=== PATIENT | female | born 1995 | race Caucasian/White ===

== ENCOUNTER 2023-11-28 08:49 | Emergency (ER) | payer OTHER, SELFPAY ==
[2023-11-28 09:15] VITALS: BP 125/85
--- NOTE | 2023-11-28 09:55 | ED.GENMED ---
History of Present Illness
<Olivia Cervantes PA-C - Last Filed: 11/28/23 12:54>
General
Chief Complaint: Abdominal Pain
Source: patient
Exam Limitations: none
Time Seen by Provider: 11/28/23 09:30
Nursing documentation reviewed up to this point in time: agreed with
Travel History
Have you had any contact with someone who has COVID-19?: No
Do you have any symptoms of coronavirus? Fever > 100 degrees, chills, cough, shortness of breath, sore throat, loss of taste or smell, muscle aches, or headache?: No
History of Present Illness
History of Present Illness:
Patient is a 28 y.o female presenting for evaluation following bought of vomiting and diarrhea starting this morning. Patient woke from sleep around 5AM and and has multiple bouts of vomiting and diarrhea. She has since started to feel better and
has not vomited or had diarrhea in the past hour. Patient has a history of similar episodes of cyclical vomiting in the past but states that this does not feel nearly as severe as the past. She endorses feeling 'bubble' in LUQ but denies any true
abdominal pain.
She denies any fever, chills, chest pain, shortness of breath, urinary symptoms. She denies any hematemesis, hematochezia, or melena. No known sick contacts.
She has been following with GI for chronic diarrhea and IBS symptoms.
Patient unsure of LMP - irregular due to depo shots.
Patient was seen in ED approx 4 months ago with similar symptoms and negative CT scan.
Past History
<Olivia Cervantes PA-C - Last Filed: 11/28/23 12:54>
Past History
ED Past Medical History: Asthma, GERD, Psychiatric (Anxiety, depression) and Other (Intermittent vomiting episodes, Pneumothorax, IBS, Ovarian cyst, Dysmenorrhea)
ED Past Surgical History: None and Other (Breast reduction)
Patient has exhibited threatening behavior?: No
PSI?: No
Social History
Tobacco: Non-smoker
Alcohol: None
Drug: Marijuana
Personal: Single
Living: with family
Employment: Student
Phy Exam
<Olivia Cervantes PA-C - Last Filed: 11/28/23 12:54>
Physical Exam
Physical Exam:
General: Well appearing and non-toxic
Vitals: VSS, afebrile
HEENT: Atraumatic, normocephalic; pupils equal round and reactive to light bilaterally; protecting airway
Neck: appears supple
CV: RRR, heart sounds normal, no evidence of cyanosis
Resp: No evidence of respiratory distress, lungs clear, no accessory muscle use
Abd: Soft, mild diffuse tenderness without rebound or guarding, non-distended; no CVA tenderness
Extremities: No deformities, no evidence of cyanosis or edema
Neuro: alert and oriented to person, place, time; speech normal, no focal neurologic deficits
Psych: Normal affect
Skin: Intact, no rashes
Course
<Olivia Cervantes PA-C - Last Filed: 11/28/23 12:54>
Orders/Labs/Results
Orders:
Orders
11/28/23 10:09
Test Result ONCE
11/28/23 10:15
Complete Blood Count/With Diff Urgent
Comprehensive Metabolic Panel Urgent
HCG, Serum Qualitative Screen Urgent
Lipase Urgent
11/28/23 10:19
0.9% Sodium Chloride 1000 ml [Nss] 1,000 ml IV BOLUS
Ondansetron Injectable [Zofran] 4 mg IV NOW STA
Abnormal Lab Results
11/28/23
10:15
WBC 12.4 H 10^3/uL
(4.8-10.8)
Abs Immat Gran (auto) 0.1 H 10^3/uL
(0-0.05)
Absolute Neuts (auto) 10.5 H 10^3/uL
(1.4-6.5)
Immature Gran % 0.7 H %
(0-0.5)
Neutrophils % 84.7 H %
(42.2-75.2)
Lymphocytes % 10.3 L %
(20.5-51.1)
Chloride 111 H mmol/L
(98-107)
Carbon Dioxide 20 L mmol/L
(22-30)
Glucose 113 H mg/dl
(70-99)
11/28/23 10:15
11/28/23 10:15
Vital Signs
Initial and Last Documented VS:
Initial Vital Signs
Temp Pulse Resp BP Pulse Ox
98 F 106 18 125/85 98
11/28/23 09:15 11/28/23 09:15 11/28/23 09:15 11/28/23 09:15 11/28/23 09:15
Last Documented Vital Signs
Temp Pulse Resp BP Pulse Ox
98 F 80 16 96/63 100
11/28/23 09:15 11/28/23 10:07 11/28/23 10:07 11/28/23 11:02 11/28/23 11:30
Mateuszlt;Tereso Gutierrez, DO - Last Filed: 11/28/23 11:21>
Orders/Labs/Results
Orders:
Orders
11/28/23 10:09
Test Result ONCE
11/28/23 10:15
Complete Blood Count/With Diff Urgent
Comprehensive Metabolic Panel Urgent
HCG, Serum Qualitative Screen Urgent
Lipase Urgent
11/28/23 10:19
0.9% Sodium Chloride 1000 ml [Nss] 1,000 ml IV BOLUS
Ondansetron Injectable [Zofran] 4 mg IV NOW STA
Abnormal Lab Results
11/28/23
10:15
WBC 12.4 H 10^3/uL
(4.8-10.8)
Abs Immat Gran (auto) 0.1 H 10^3/uL
(0-0.05)
Absolute Neuts (auto) 10.5 H 10^3/uL
(1.4-6.5)
Immature Gran % 0.7 H %
(0-0.5)
Neutrophils % 84.7 H %
(42.2-75.2)
Lymphocytes % 10.3 L %
(20.5-51.1)
Chloride 111 H mmol/L
(98-107)
Carbon Dioxide 20 L mmol/L
(22-30)
Glucose 113 H mg/dl
(70-99)
11/28/23 10:15
11/28/23 10:15
Vital Signs
Initial and Last Documented VS:
Initial Vital Signs
Temp Pulse Resp BP Pulse Ox
98 F 106 18 125/85 98
11/28/23 09:15 11/28/23 09:15 11/28/23 09:15 11/28/23 09:15 11/28/23 09:15
Last Documented Vital Signs
Temp Pulse Resp BP Pulse Ox
98 F 80 16 96/63 100
11/28/23 09:15 11/28/23 10:07 11/28/23 10:07 11/28/23 11:02 11/28/23 11:30
<Olivia Cervantes PA-C - Last Filed: 11/28/23 12:54>
MDM/Problems Addressed
Differential Diagnosis Includes:
gastroenteritis, colitis, pancreatitis, diverticulitis, cholecystitis, appendicitis
MDM/Problems Addressed:
Patient is 28 y.o female presenting for evaluation of multiple bouts of vomiting and diarrhea this morning. No fever, chills, severe abdominal pain, or urinary symptoms. No chest pain or shortness of breath. Patient feeling better since arrival to
ED. VSS, afebrile. Abdomen soft and nontender. No CVA tenderness. Patient has history of similar symptoms with negative imaging approximately 4 months ago. Given patient feeling better and benign abdominal exam - will not get imaging at this time.
Will get basic labs, lipase, . Will give fluids and 4mg zofran. Will reassess
CBC with mild leukocytosis of 12.4. Suspect this is likely reactive from vomiting. Otherwise no clinically significant abnormalities. CMP without any clinically significant abnormalities. Lipase normal. test negative.
Update 10:55: Patient feeling better after zofran. Will continue to let fluids run and reassess.
Patient feeling better. She has remained stable without any recurrent episodes of nausea or vomiting since arrival to ED. Stable for discharge with return precautions and GI follow-up as needed. Patient comfortable with this plan. All questions
answered.
Chronic conditions affecting care:
IBS
Acute Exacerbation and/or Progression of Chronic Illness:
Vomiting, diarrhea
<Olivia Cervantes PA-C - Last Filed: 11/28/23 12:54>
*Pulse Oximetry
Patient hypoxic: no
*Straight Knife Cutter Machine Interpretation
Rate: Straight Knife Cutter Machine- N/A
*Critical Care Note
Total Time (30-74mins, 75-104mins- exclusive of procedures): Not Applicable
ED Attending Note
<Olivia Cervantes PA-C - Last Filed: 11/28/23 12:54>
-
Portions of this chart may have been created with voice recognition software.� Occasional wrong word or��sound alike� substitutions may have occurred due to the inherent limitations of voice recognition software.
<Tereso Gutierrez DO - Last Filed: 11/28/23 11:21>
ED Attending Note
Patient seen and examined by attending physician: Yes
I performed the substantive portion of visit, reviewed & personally made and approve the management plan that is documented in note by myself or JESSICA.: Yes
ED Attending Note:
28-year-old female with a history of cyclical vomiting as well as daily diarrheal illness who presents because she was worried she was going into the throes of her cyclical vomiting. She tried Zofran at home without relief. On my evaluation she
feels much better. Patient denies any abdominal pain. She does follow-up with GI and has a planned appointment upcoming. No fevers. No melena. No hematochezia. Abdomen nondistended, no respiratory distress, no active vomiting. Assessment and
plan: IV fluids given, patient feels much better. Outpatient GI follow-up recommended. Imaging not indicated
Discharge Plan
Departure
Patient Disposition: Home (Routine Discharge)
Date of Disposition: 11/28/23
Time of Disposition: :
Patient with high blood pressure during this ER visit?: No
Condition: Good
Covid-19: Not Applicable
Discharge Problem:
Vomiting, Diarrhea
Instructions: Diarrhea in adolescents and adults, Nausea and Vomiting, Adult (DC)
Prescriptions:
No Action
lamotrigine 25 mg tablet
100 mg PO DAILY
famotidine 20 mg tablet
20 mg PO HS
hydroxyzine HCl 25 mg tablet
25 mg PO TID PRN (Reason: nausea/sleep/dermatitis)
medroxyprogesterone 150 mg/mL syringe
150 mg IM .Q3MOS
bupropion HCl 150 mg tablet extended release 24 hr
150 mg PO DAILY
tamsulosin [Flomax] 0.4 mg capsule
0.4 mg PO DAILY Qty: 7 0RF
diclofenac sodium 75 mg tablet,delayed release (DR/EC)
75 mg PO BID Qty: 10 0RF
Referrals:
Erika Carr PA-C [Family Provider] - As needed
Activity Restrictions/Additional Instructions:
-Return to the emergency department with any high fevers, chest pain, shortness of breath, severe abdominal pain, intractable vomiting, signs of severe dehydration, worsening of current symptoms, or any other concerns
-It is important to stay well-hydrated
-Follow-up with primary care for further evaluation/treatment.
-Follow-up with GI for further evaluation/treatment of persistent GI symptoms.
Interventions
Interventions:
*Risk Screen - Suicide Last Done: 11/28/23 09:15
*General Assessment Last Done: 11/28/23 09:15
*Neglect/Abuse Screening Last Done: 11/28/23 09:15
ED- Fall Risk Assessment Last Done: 11/28/23 10:07
*ED COVID-19 Vaccine History Last Done: 11/28/23 10:07
*Nursing Disposition Last Done: 11/28/23 11:55
NR-Jdtmlr-Ezeuybksht Assessment Last Done: 11/28/23 10:07
Discharge Date and Time
Discharge Date/Time: 11/28/23 12:21
[2023-11-28 10:06] VITALS: BMI 28.0
[2023-11-28 10:07] VITALS: BP 105/68
[2023-11-28 10:27] LABS: % Basophils 0.5 % (0-2); % Eosinophils 0.2 % (0-6); % Immature Granulocytes 0.7 % (0-0.5); % Lymphocytes 10.3 % (20.5-51.1); % Monocytes 3.6 % (1.7-9.3); % Neutrophils 84.7 % (42.2-75.2); Absolute Basophils 0.1 10^3/uL (0-0.2); Absolute Immature Granulocytes 0.1 10^3/uL (0-0.05); Absolute Lymphocytes 1.3 10^3/uL (1.2-3.4); Absolute Monocytes 0.5 10^3/uL (0.1-0.6); Absolute Neutrophils 10.5 10^3/uL (1.4-6.5); Hematocrit 37.5 % (37.0-47.0); Hemoglobin 12.9 g/dL (12.0-16.0); Mean Corp Hgb Conc. 34.4 g/dL (33.0-37.0); Mean Corpuscular Hgb 29.9 pg (27.0-31.0); Nucleated Red Blood Cells % 0 %; Platelet Count 398 10^3/uL (130-400); Red Blood Cell Count 4.31 10^6/uL (4.20-5.40); White Blood Cell Count 12.4 10^3/uL (4.8-10.8)
[2023-11-28] MEDS: NSS 1000 IV (10:36)
[2023-11-28] MEDS: ZOFRAN 4 MG IV (10:37)
[2023-11-28 10:38] LABS: HCG, Serum Qualitative Screen Negative
[2023-11-28 10:43] LABS: ALT (SGPT) 19 U/L (0-35); AST (SGOT) 22 U/L (14-36); Albumin 4.6 g/dl (3.5-5.0); Alkaline Phosphatase 63 U/L (38-126); Blood Urea Nitrogen 8 mg/dl (7-17); Calcium 9.9 mg/dl (8.4-10.2); Carbon Dioxide 20 mmol/L (22-30); Chloride 111 mmol/L (98-107); Estimated Creatinine Clearance > 125 ml/min; Glucose 113 mg/dl (70-99); Lipase 56 U/L (23-300); Potassium 4.2 mmol/L (3.5-5.1); Sodium 139 mmol/L (135-145); Total Bilirubin 0.5 mg/dl (0.2-1.3); Total Protein 7.4 g/dl (6.3-8.2); eGFR > 60.00
[2023-11-28 11:02] VITALS: BP 96/63
== END 2023-11-28 12:21 | disposition home or self-care (01) ==
LOC: EMR 08:49
PROVIDERS: Physician Assistant; EMERGENCY PHYSICIAN Emergency Medicine; FAMILY PHYSICIAN Physician Assistant Medical
DX: R11.2 Nausea with vomiting, unspecified (principal); R19.7 Diarrhea, unspecified
CPT/HCPCS: 99284; 96374; 96361; 80053; 83690; 84703; 85025

== ENCOUNTER 2024-03-24 18:44 | Emergency (ER) | payer OTHER, SELFPAY ==
[2024-03-24] MEDS: TORADOL 15 MG IV (20:20)
[2024-03-24] MEDS: ZOFRAN 4 MG IV (20:20)
[2024-03-24] MEDS: NSS 1000 IV (20:20)
[2024-03-24] MEDS: DILAUDID 1 MG IV (21:23)
[2024-03-24] MEDS: COMPAZINE 10 MG IV (21:23)
[2024-03-24 21:29] VITALS: BP 119/79
[2024-03-24 21:36] LABS: % Basophils 0.3 % (0-2); % Lymphocytes 9.8 % (20.5-51.1); % Monocytes 5.5 % (1.7-9.3); % Neutrophils 83.4 % (42.2-75.2); Absolute Basophils 0.1 10^3/uL (0-0.2); Absolute Immature Granulocytes 0.2 10^3/uL (0-0.05); Absolute Monocytes 1.1 10^3/uL (0.1-0.6); Absolute Neutrophils 16.7 10^3/uL (1.4-6.5); Hemoglobin 12.9 g/dL (12.0-16.0); Mean Corp Hgb Conc. 35.8 g/dL (33.0-37.0); Mean Corpuscular Hgb 29.2 pg (27.0-31.0); Mean Corpuscular Volume 81.4 fL (81.0-99.0); Mean Platelet Volume 9.1 fL (7.4-10.4); Nucleated Red Blood Cells % 0 %; Platelet Count 474 10^3/uL (130-400); Red Blood Cell Count 4.42 10^6/uL (4.20-5.40); Red Cell Dist. Width 13.2 % (11.5-14.5)
--- NOTE | 2024-03-24 21:46 | ED.GENMED ---
History of Present Illness
General
Chief Complaint: Abdominal Symptoms
Source: patient
Exam Limitations: none
Time Seen by Provider: 03/24/24 20:18
Nursing documentation reviewed up to this point in time: agreed with
Travel History
Have you had any contact with someone who has COVID-19?: No
Do you have any symptoms of coronavirus? Fever > 100 degrees, chills, cough, shortness of breath, sore throat, loss of taste or smell, muscle aches, or headache?: No
History of Present Illness
History of Present Illness:
The patient is a 28-year-old female with a past medical history of chronic nausea and vomiting who comes in with complaints of severe nausea, vomiting and upper abdominal pain that started this morning. Patient attributes it to eating ice cream
last night. The patient does admit to smoking marijuana on a nightly basis. She does report that she took a 2-year break from marijuana but still had episodes of nausea, vomiting and abdominal pain. Patient reports she has had normal bowel
movements. She denies fever.
Past History
Past History
ED Past Medical History: Asthma, GERD, Psychiatric (Anxiety, depression) and Other (Intermittent vomiting episodes, Pneumothorax, IBS, Ovarian cyst, Dysmenorrhea, endometriosis)
ED Past Surgical History: Other (Breast reduction, surgery for scarring from endometriosis)
Patient has exhibited threatening behavior?: No
PSI?: No
Social History
Tobacco: Non-smoker
Alcohol: None
Drug: Marijuana
Personal: Single
Living: with family
Employment: Student
Family History
Family History: Other
Review of Systems
Review of Systems
Allergies reviewed?: Yes
All Other Systems: ROS reviewed and negative except as documented in HPI and ROS
Constitutional: Reports no symptoms
EENT: Reports no symptoms
Respiratory: Reports no symptoms
Cardiac: Reports chest pain
ABD/GI: Reports abdominal pain, nausea and vomiting
: Reports no symptoms
Musculoskeletal: Reports no symptoms
Skin: Reports no symptoms
Neurological: Reports no symptoms
Endocrine: Reports no symptoms
Hematologic/Lymphatic: Reports no symptoms
Psychiatric: Reports anxiety
Phy Exam
Physical Exam
Physical Exam:
Physical Exam
General: Patient extremely anxious. Retching, actively vomiting. Patient is hyperventilating
Neck: supple. no meningeal signs. normal psoterior pharynx
Heart: Regular rate, no murmur
Lungs: no acute respiratory distress. clear bilaterally
Abdomen: Difficult to hear bowel sounds due to patient retching. Abdomen is soft throughout and nondistended. Mild epigastric and left upper quadrant tenderness without rebound or guarding.
Neuro: alert and oriented. no focal neurological deficits
Skin: no rash
Psychiatric: well kept. interactive and cooperative
Extremities: no edema.
Course
Orders/Labs/Results
Orders:
Orders
03/24/24 20:18
Ketorolac [Toradol] 15 mg IV NOW STA
Ondansetron Injectable [Zofran] 4 mg IV NOW STA
03/24/24 20:19
Ketorolac [Toradol] 15 mg .ROUTE .STK-MED ONE
Ondansetron Injectable [Zofran] 4 mg .ROUTE .STK-MED ONE
03/24/24 20:20
0.9% Sodium Chloride 1000 ml [Nss] 1,000 ml IV BOLUS
03/24/24 21:09
HYDROmorphone [Dilaudid] 1 mg IV NOW STA
Prochlorperazine [Compazine] 10 mg IV NOW STA
03/24/24 21:10
Test Result ONCE
Abdominal Series [CR Obstruct Series W/pa Chest] Urgent
Comment:
Reason For Exam: upper ab pain, vomiting, CP
03/24/24 21:24
Complete Blood Count/With Diff Urgent
Comprehensive Metabolic Panel Urgent
HCG, Serum Qualitative Screen Urgent
Lipase Urgent
Abnormal Lab Results
03/24/24
21:24
WBC 20.0 H 10^3/uL
(4.8-10.8)
Hct 36.0 L %
(37.0-47.0)
Plt Count 474 H 10^3/uL
(130-400)
Abs Immat Gran (auto) 0.2 H 10^3/uL
(0-0.05)
Absolute Neuts (auto) 16.7 H 10^3/uL
(1.4-6.5)
Absolute Monos (auto) 1.1 H 10^3/uL
(0.1-0.6)
Immature Gran % 1.0 H %
(0-0.5)
Neutrophils % 83.4 H %
(42.2-75.2)
Lymphocytes % 9.8 L %
(20.5-51.1)
Carbon Dioxide 18 L mmol/L
(22-30)
Glucose 133 H mg/dl
(70-99)
Calcium 10.6 H mg/dl
(8.4-10.2)
Albumin 5.1 H g/dl
(3.5-5.0)
03/24/24 21:24
03/24/24 21:24
Vital Signs
Initial and Last Documented VS:
Initial Vital Signs
Temp Pulse Resp Pulse Ox
98.1 F 86 28 96
03/24/24 18:48 03/24/24 18:48 03/24/24 18:48 03/24/24 18:48
Last Documented Vital Signs
Temp Pulse Resp BP Pulse Ox
98.1 F 84 18 119/79 96
03/24/24 18:48 03/24/24 21:29 03/24/24 21:29 03/24/24 21:29 03/24/24 21:29
MDM/Problems Addressed
Differential Diagnosis Includes:
hyperemesis cannabinoid syndrome, small bowel obstruction, acute cholecystitis
MDM/Problems Addressed:
Patient presents with acute on chronic abdominal pain and vomiting
Chronic conditions affecting care:
Gastritis, GERD
Acute Exacerbation and/or Progression of Chronic Illness:
Patient may have acute exacerbation of her chronic nausea and vomiting possibly due to cannabis use
*Radiology
Radiology exam reviewed: preliminary read by ED provider (Obstruction series reviewed by me. No acute disease seen)
*Pulse Oximetry
Patient hypoxic: no
*Supervisor Compressed Yeast Interpretation
Rate: normal
Interpretation: normal
Rhythm: sinus
*Critical Care Note
Total Time (30-74mins, 75-104mins- exclusive of procedures): Not Applicable
Data Reviewed
Review of Other/Old Records Reveals: Radiology Studies (CT abdomen pelvis reviewed from October 2023 which shows evidence of kidney stone)
Source: patient
Patient Management
Social determinants of health affecting care: Living situation and Strong social support
Update Note
Update Note:
10:30 PM patient reports she feels so much better. She reports her abdominal pain is completely gone. I reexamined her abdomen and it is soft and nontender throughout. So it is doubtful there is an acute surgical or inflammatory issue.
ED Attending Note
-
Portions of this chart may have been created with voice recognition software.� Occasional wrong word or��sound alike� substitutions may have occurred due to the inherent limitations of voice recognition software.
Discharge Plan
Departure
Patient Disposition: Home (Routine Discharge)
Date of Disposition: 03/24/24
Time of Disposition: 22:46
Patient with high blood pressure during this ER visit?: No
Condition: Good
Covid-19: Not Applicable
Discharge Problem:
Acute vomiting, Acute upper abdominal pain
Instructions: Nausea and Vomiting, Adult (DC), Abdominal Pain
Prescriptions:
No Action
lamotrigine 25 mg tablet
100 mg PO DAILY
famotidine 20 mg tablet
20 mg PO HS
hydroxyzine HCl 25 mg tablet
25 mg PO TID PRN (Reason: nausea/sleep/dermatitis)
medroxyprogesterone 150 mg/mL syringe
150 mg IM .Q3MOS
bupropion HCl 150 mg tablet extended release 24 hr
150 mg PO DAILY
tamsulosin [Flomax] 0.4 mg capsule
0.4 mg PO DAILY Qty: 7 0RF
diclofenac sodium 75 mg tablet,delayed release (DR/EC)
75 mg PO BID Qty: 10 0RF
Referrals:
Erika Carr PA-C [Family Provider] -
Activity Restrictions/Additional Instructions:
Return for fever or severe abdominal pain. Please try to keep yourself well-hydrated.
Interventions
Interventions:
*Risk Screen - Suicide Last Done: 03/24/24 18:48
*General Assessment Last Done: 03/24/24 18:56
*Neglect/Abuse Screening Last Done: 03/24/24 18:48
ED- Fall Risk Assessment Last Done: 03/24/24 18:56
*ED COVID-19 Vaccine History Last Done: 03/24/24 18:56
BD-Voxypt-Jzskrgprjd Assessment Last Done: 03/24/24 18:56
Discharge Date and Time
Print Language: YI
[2024-03-24 21:51] LABS: HCG, Serum Qualitative Screen Negative
[2024-03-24 21:56] LABS: AST (SGOT) 30 U/L (14-36); Albumin 5.1 g/dl (3.5-5.0); Alkaline Phosphatase 77 U/L (38-126); Blood Urea Nitrogen 9 mg/dl (7-17); Calcium 10.6 mg/dl (8.4-10.2); Carbon Dioxide 18 mmol/L (22-30); Chloride 107 mmol/L (98-107); Glucose 133 mg/dl (70-99); Lipase 90 U/L (23-300); Potassium 4.1 mmol/L (3.5-5.1); Sodium 142 mmol/L (135-145); Total Bilirubin 0.8 mg/dl (0.2-1.3); Total Protein 7.9 g/dl (6.3-8.2); eGFR > 60.00
[2024-03-24 22:08] LABS: ALT (SGPT) < 30 U/L (0-35)
[2024-03-24 22:55] VITALS: BP 123/74
== END 2024-03-24 22:59 | disposition home or self-care (01) ==
LOC: EMR 18:44
PROVIDERS: EMERGENCY PHYSICIAN Emergency Medicine; FAMILY PHYSICIAN Physician Assistant Medical
DX: R11.2 Nausea with vomiting, unspecified (principal); R10.30 Lower abdominal pain, unspecified; J45.909 Unspecified asthma, uncomplicated; K21.9 Gastro-esophageal reflux disease without esophagitis; F41.8 Other specified anxiety disorders; K58.9 Irritable bowel syndrome, unspecified
CPT/HCPCS: 99283; 96374; 96375; 96361; 74022; 80053; 83690; 84703; 85025

== ENCOUNTER 2024-06-19 11:59 | Emergency (ER) | payer OTHER, SELFPAY ==
[2024-06-19 12:01] VITALS: BP 123/88
[2024-06-19 12:38] LABS: % Basophils 0.5 % (0-2); % Eosinophils 0.3 % (0-6); % Immature Granulocytes 0.9 % (0-0.5); % Lymphocytes 9.9 % (20.5-51.1); % Monocytes 3.4 % (1.7-9.3); Absolute Basophils 0.1 10^3/uL (0-0.2); Absolute Immature Granulocytes 0.1 10^3/uL (0-0.05); Absolute Lymphocytes 1.3 10^3/uL (1.2-3.4); Absolute Monocytes 0.4 10^3/uL (0.1-0.6); Hematocrit 39.8 % (37.0-47.0); Hemoglobin 13.8 g/dL (12.0-16.0); Mean Corp Hgb Conc. 34.7 g/dL (33.0-37.0); Mean Corpuscular Hgb 29.2 pg (27.0-31.0); Mean Corpuscular Volume 84.1 fL (81.0-99.0); Mean Platelet Volume 8.9 fL (7.4-10.4); Nucleated Red Blood Cells % 0 %; Platelet Count 374 10^3/uL (130-400); Red Blood Cell Count 4.73 10^6/uL (4.20-5.40); Red Cell Dist. Width 12.9 % (11.5-14.5); White Blood Cell Count 12.9 10^3/uL (4.8-10.8)
[2024-06-19 12:51] LABS: ALT (SGPT) 16 U/L (0-35); AST (SGOT) 21 U/L (14-36); Albumin 5.1 g/dl (3.5-5.0); Alkaline Phosphatase 65 U/L (38-126); Blood Urea Nitrogen 11 mg/dl (7-17); Calcium 10.5 mg/dl (8.4-10.2); Carbon Dioxide 21 mmol/L (22-30); Chloride 107 mmol/L (98-107); Glucose 119 mg/dl (70-99); Lipase 53 U/L (23-300); Potassium 4.4 mmol/L (3.5-5.1); Sodium 142 mmol/L (135-145); Total Bilirubin 0.5 mg/dl (0.2-1.3); Total Protein 7.5 g/dl (6.3-8.2); eGFR > 60.00
--- NOTE | 2024-06-19 13:02 | ED.GENMED ---
History of Present Illness
<Olivia Cervantes PA-C - Last Filed: 06/19/24 19:20>
General
Chief Complaint: Abdominal Pain
Source: patient
Exam Limitations: none
Time Seen by Provider: 06/19/24 12:42
Nursing documentation reviewed up to this point in time: agreed with
History of Present Illness
History of Present Illness:
Patient is a 29 year old female presenting with severe abdominal pain associated with nausea, vomiting, diarrhea with acute onset this morning. Patient states around 730 this morning she began with persistent nausea and vomiting. She describes
pain across her upper abdomen. Also has had a few episodes of diarrhea this morning. Patient denies any fever, chills, or urinary symptoms
Patient states that she has had multiple similar episodes in the past. Was thought that it might be cannabis induced hyperemesis although patient reports a few bouts of discontinuing marijuana smoking without improvement in symptoms. She did
recently have a colonoscopy and endoscopy by GI few months ago which were apparently normal.
Patient does report nightly marijuana smoking.
Past History
<Olivia Cervantes PA-C - Last Filed: 06/19/24 19:20>
Past History
ED Past Medical History: Asthma, GERD, Psychiatric (Anxiety, depression) and Other (Intermittent vomiting episodes, Pneumothorax, IBS, Ovarian cyst, Dysmenorrhea, endometriosis)
ED Past Surgical History: Other (Breast reduction, surgery for scarring from endometriosis)
Patient has exhibited threatening behavior?: No
PSI?: No
Social History
Tobacco: Non-smoker
Alcohol: None
Drug: Marijuana
Personal: Single
Living: with family
Employment: Student
Family History
Family History: Other
Review of Systems
<Olivia Cervantes PA-C - Last Filed: 06/19/24 19:20>
Review of Systems
Allergies reviewed?: Yes
All Other Systems: ROS reviewed and negative except as documented in HPI and ROS
Phy Exam
<Olivia Cervantes PA-C - Last Filed: 06/19/24 19:20>
Physical Exam
Physical Exam:
Vitals: Patient's vital signs are stable. Afebrile
General: Patient is actively retching. Nontoxic-appearing
Skin: Warm and dry, no rashes or lesions
Head: Normocephalic, atraumatic
Eyes: Sclera nonicteric. EOMs intact. No nystagmus.
Throat: Protecting airway
Neck: Normal ROM, no cervical spine tenderness, no meningismus
Cardiac: Regular rate and rhythm, no murmurs.
Pulm: Normal respiratory effort, no wheezes, rales, rhonchi heard on exam.
Abdomen: Abdomen soft. Diffuse abdominal tenderness, no rebound tenderness or guarding. No CVA tenderness
Extremities: No evidence of cyanosis or edema
Neuro: Grossly intact.
Psychiatric: Normal affect.
Course
<Olivia Cervantes PA-C - Last Filed: 06/19/24 19:20>
Orders/Labs/Results
Orders:
Orders
06/19/24 12:22
Complete Blood Count/With Diff Urgent
Comprehensive Metabolic Panel Urgent
HCG, Serum Qualitative Screen Urgent
Comment: ADD ON
Lipase Urgent
06/19/24 12:58
Add On- LAB Urgent
Tests Added?: serum hcg
0.9% Sodium Chloride 1000 ml [Nss] 1,000 ml IV BOLUS
Ketorolac [Toradol] 15 mg IV NOW STA
Ondansetron Injectable [Zofran] 4 mg IV NOW STA
06/19/24 13:01
HYDROmorphone [Dilaudid] 0.5 mg IV NOW STA
06/19/24 13:34
Electrocardiogram (*1) Urgent
Reason for Study: QTc Monitoring
EKG- Treatment ONCE
06/19/24 13:41
Capsaicin [Zostrix-Hp 0.075% Cream] See Dose Instructions TOPICAL NOW STA
06/19/24 14:05
Haloperidol Lactate [Haldol] 1 mg IV NOW STA
06/19/24 14:46
Diphenhydramine [Benadryl] 25 mg IV NOW STA
Ketorolac [Toradol] 15 mg IV NOW STA
Prochlorperazine [Compazine] 10 mg IV NOW STA
06/19/24 15:35
Abdominal Series [CR Obstruct Series W/pa Chest] Urgent
Comment:
Reason For Exam: left sided abdominal pain, +N/V
Abnormal Lab Results
06/19/24
12:22
WBC 12.9 H 10^3/uL
(4.8-10.8)
Abs Immat Gran (auto) 0.1 H 10^3/uL
(0-0.05)
Absolute Neuts (auto) 11.0 H 10^3/uL
(1.4-6.5)
Immature Gran % 0.9 H %
(0-0.5)
Neutrophils % 85.0 H %
(42.2-75.2)
Lymphocytes % 9.9 L %
(20.5-51.1)
Carbon Dioxide 21 L mmol/L
(22-30)
Glucose 119 H mg/dl
(70-99)
Calcium 10.5 H mg/dl
(8.4-10.2)
Albumin 5.1 H g/dl
(3.5-5.0)
06/19/24 12:22
06/19/24 12:22
Vital Signs
Initial and Last Documented VS:
Initial Vital Signs
Temp Pulse Resp BP Pulse Ox
97.8 F 91 16 123/88 100
06/19/24 12:01 06/19/24 12:01 06/19/24 12:01 06/19/24 12:01 06/19/24 12:01
Last Documented Vital Signs
Temp Pulse Resp BP Pulse Ox
97.8 F 91 16 124/77 100
06/19/24 12:01 06/19/24 12:01 06/19/24 12:01 06/19/24 14:08 06/19/24 15:00
<Clinton Guillen, DO - Last Filed: 06/21/24 02:36>
Orders/Labs/Results
Orders:
Orders
06/19/24 12:22
Complete Blood Count/With Diff Urgent
Comprehensive Metabolic Panel Urgent
HCG, Serum Qualitative Screen Urgent
Comment: ADD ON
Lipase Urgent
06/19/24 12:58
Add On- LAB Urgent
Tests Added?: serum hcg
0.9% Sodium Chloride 1000 ml [Nss] 1,000 ml IV BOLUS
Ketorolac [Toradol] 15 mg IV NOW STA
Ondansetron Injectable [Zofran] 4 mg IV NOW STA
06/19/24 13:01
HYDROmorphone [Dilaudid] 0.5 mg IV NOW STA
06/19/24 13:34
Electrocardiogram (*1) Urgent
Reason for Study: QTc Monitoring
EKG- Treatment ONCE
06/19/24 13:41
Capsaicin [Zostrix-Hp 0.075% Cream] See Dose Instructions TOPICAL NOW STA
06/19/24 14:05
Haloperidol Lactate [Haldol] 1 mg IV NOW STA
06/19/24 14:46
Diphenhydramine [Benadryl] 25 mg IV NOW STA
Ketorolac [Toradol] 15 mg IV NOW STA
Prochlorperazine [Compazine] 10 mg IV NOW STA
06/19/24 15:35
Abdominal Series [CR Obstruct Series W/pa Chest] Urgent
Comment:
Reason For Exam: left sided abdominal pain, +N/V
Abnormal Lab Results
06/19/24
12:22
WBC 12.9 H 10^3/uL
(4.8-10.8)
Abs Immat Gran (auto) 0.1 H 10^3/uL
(0-0.05)
Absolute Neuts (auto) 11.0 H 10^3/uL
(1.4-6.5)
Immature Gran % 0.9 H %
(0-0.5)
Neutrophils % 85.0 H %
(42.2-75.2)
Lymphocytes % 9.9 L %
(20.5-51.1)
Carbon Dioxide 21 L mmol/L
(22-30)
Glucose 119 H mg/dl
(70-99)
Calcium 10.5 H mg/dl
(8.4-10.2)
Albumin 5.1 H g/dl
(3.5-5.0)
06/19/24 12:22
06/19/24 12:22
Vital Signs
Initial and Last Documented VS:
Initial Vital Signs
Temp Pulse Resp BP Pulse Ox
97.8 F 91 16 123/88 100
06/19/24 12:01 06/19/24 12:01 06/19/24 12:01 06/19/24 12:01 06/19/24 12:01
Last Documented Vital Signs
Temp Pulse Resp BP Pulse Ox
97.8 F 91 16 124/77 100
06/19/24 12:01 06/19/24 12:01 06/19/24 12:01 06/19/24 14:08 06/19/24 15:00
<Olivia Cervantes PA-C - Last Filed: 06/19/24 19:20>
MDM/Problems Addressed
Differential Diagnosis Includes:
Not limited to: Marijuana hyperemesis syndrome, viral gastroenteritis, dehydration, doubt appendicitis, kidney stone diverticulitis
MDM/Problems Addressed:
29-year-old female presenting with persistent nausea, vomiting associated with left-sided abdominal pain since this morning. Patient does have history of very similar symptoms with multiple prior visits. Patient does use marijuana nightly.
Patient did have a CT scan performed October of this year without any acute findings. Patient does report symptoms are consistent with prior episodes. Patient did recently have colonoscopy/endoscopy with GI without any abnormal findings. Vital
signs are stable, patient is afebrile. On my initial evaluation�patient is actively retching unable to sit still for exam. She is complaining of severe pain in her abdomen. Will give Zofran, fluids, manage pain and reassess.
Chronic conditions affecting care:
Chronic nausea/vomiting
Acute Exacerbation and/or Progression of Chronic Illness:
N/A
<Olivia Cervantes PA-C - Last Filed: 06/19/24 19:20>
*Radiology
Radiology exam reviewed: preliminary read by ED provider and radiology read reviewed
*Pulse Oximetry
Patient hypoxic: no
*EKG
Interpreted by ED Provider?: NA
*Professor Of Languages Interpretation
Rate: Professor Of Languages- N/A
*Critical Care Note
Total Time (30-74mins, 75-104mins- exclusive of procedures): Not Applicable
Data Reviewed
Review of Other/Old Records Reveals: Records (Emergency department visits from November 2023 in March 2024 with similar complaints of nausea, vomiting.) and Radiology Studies (CT from October 2023 without any evidence of acute abnormalities)
Further Testing Considered But Not Given:
CT abdomen/pelvis although given patient is afebrile with benign abdominal exam doubt acute intra-abdominal infection
<Olivia Cervantes PA-C - Last Filed: 06/19/24 19:20>
Update Note
Update Note:
Update: Into reassess patient following pain medicine. She is still actively retching. Abdomen is soft with mild diffuse tenderness. No rebound tenderness or guarding. Otherwise heart regular rate and rhythm. Lungs clear bilaterally. Symptoms
seem most consistent with likely cannabis hyperemesis syndrome. Abdominal exam relatively benign�imaging not indicated at this time. Labs noted. Mild leukocytosis of 12.9�likely reactive due to vomiting. Chemistry panel without any clinically
significant abnormalities. Mildly elevated calcium of 10.5 likely secondary to dehydration. is negative. Lipase is normal. Given patient is still retching�will check weasand trimmer QT interval and treat with Haldol, capsaicin cream. Will
closely monitor reassess
Update: Into reassess patient. Patient still complaining of nausea and left-sided abdominal pain. Will give dose of Toradol and Compazine. Given persistent pain will check obstruction series of abdomen to ensure no obstruction.
Update 540PM: Abdominal x-ray shows no evidence of intestinal obstruction. Patient has not had any episodes of vomiting since prior examination. She does still have some mild left abdominal sided pain. Given patient is afebrile with benign
abdominal exam�do not suspect acute infectious process in abdomen. Suspect likely cannabis hyperemesis syndrome versus gastritis. Offered admission to patient for intractable pain/vomiting. Will p.o. challenge and reassess.
Update: Unfortunately�patient did elope from emergency department prior to final evaluation following p.o. challenge. IV line was pulled by RN prior to patient elopement. Patient seen by attending physician.
ED Attending Note
<Olivia Cervantes PA-C - Last Filed: 06/19/24 19:20>
-
Portions of this chart may have been created with voice recognition software.� Occasional wrong word or��sound alike� substitutions may have occurred due to the inherent limitations of voice recognition software.
<Clinton Guillen DO - Last Filed: 06/21/24 02:36>
ED Attending Note
Patient seen and examined by attending physician: Yes
I performed a history and physical exam of patient and discussed management with resident, I reviewed resident's note and agree with documented findings and plan of care.: Yes
ED Attending Note:
I have reviewed and agree with history and treatment plan by Olivia Mendez.
On exam revealed for 9-year-old female who appears uncomfortable, patient eloped. Suspect possible viral illness versus cannabis hyperemesis versus gastroparesis.
Discharge Plan
Departure
Patient Disposition: Elopement
Date of Disposition: 06/19/24
Time of Disposition: 18:06
Prescriptions:
No Action
lamotrigine 25 mg tablet
100 mg PO DAILY
famotidine 20 mg tablet
20 mg PO HS
hydroxyzine HCl 25 mg tablet
25 mg PO TID PRN (Reason: nausea/sleep/dermatitis)
medroxyprogesterone 150 mg/mL syringe
150 mg IM .Q3MOS
bupropion HCl 150 mg tablet extended release 24 hr
150 mg PO DAILY
tamsulosin [Flomax] 0.4 mg capsule
0.4 mg PO DAILY Qty: 7 0RF
diclofenac sodium 75 mg tablet,delayed release (DR/EC)
75 mg PO BID Qty: 10 0RF
Referrals:
Erika Carr PA-C [Family Provider] -
Interventions
Interventions:
*Risk Screen - Suicide Last Done: 06/19/24 12:13
*General Assessment Last Done: 06/19/24 12:13
*Neglect/Abuse Screening Last Done: 06/19/24 12:13
*ED COVID-19 Vaccine History Last Done: 06/19/24 12:13
*Nursing Disposition Last Done: 06/19/24 18:08
VQ-Uzfzrr-Jonjrmflfi Assessment Last Done: 06/19/24 12:22
Discharge Date and Time
Discharge Date/Time: 06/19/24 18:10
Print Language: MACANESE
[2024-06-19] MEDS: NSS 1000 IV (13:04)
[2024-06-19] MEDS: ZOFRAN 4 MG IV (13:04)
[2024-06-19] MEDS: DILAUDID 0.5 MG IV (13:04)
[2024-06-19 14:03] LABS: HCG, Serum Qualitative Screen Negative
[2024-06-19 14:08] VITALS: BP 124/77
[2024-06-19] MEDS: ZOSTRIX-HP 0.075% CREAM 1 APPLIC TOPICAL (14:10)
[2024-06-19] MEDS: HALDOL 1 MG IV (14:10)
[2024-06-19] MEDS: BENADRYL 25 MG IV (14:54)
[2024-06-19] MEDS: TORADOL 15 MG IV (14:54)
[2024-06-19] MEDS: COMPAZINE 10 MG IV (14:54)
== END 2024-06-19 18:10 | disposition left against medical advice (07) ==
LOC: EMR 11:59
PROVIDERS: Physician Assistant; EMERGENCY PHYSICIAN Emergency Medicine; FAMILY PHYSICIAN Physician Assistant Medical
DX: R11.2 Nausea with vomiting, unspecified (principal); R10.9 Unspecified abdominal pain; R19.7 Diarrhea, unspecified; Z53.29 Procedure and treatment not carried out because of patient's decision for other reasons
CPT/HCPCS: 99285; 96374; 96375 ×5; 96361; 74022; 80053; 83690; 84703; 85025; 93005

== ENCOUNTER 2024-09-28 10:26 | Emergency (ER) | payer OTHER, SELFPAY ==
[2024-09-28 10:40] VITALS: BP 117/84
[2024-09-28 11:05] LABS: % Basophils 0.4 % (0-2); % Immature Granulocytes 0.8 % (0-0.5); % Lymphocytes 15.3 % (20.5-51.1); % Monocytes 4.7 % (1.7-9.3); % Neutrophils 77.8 % (42.2-75.2); Absolute Basophils 0.1 10^3/uL (0-0.2); Absolute Eosinophils 0.2 10^3/uL (0-0.7); Absolute Immature Granulocytes 0.1 10^3/uL (0-0.05); Absolute Lymphocytes 2.2 10^3/uL (1.2-3.4); Absolute Monocytes 0.7 10^3/uL (0.1-0.6); Absolute Neutrophils 11.2 10^3/uL (1.4-6.5); Hematocrit 40.5 % (37.0-47.0); Hemoglobin 14.1 g/dL (12.0-16.0); Mean Corp Hgb Conc. 34.8 g/dL (33.0-37.0); Mean Corpuscular Hgb 30.4 pg (27.0-31.0); Mean Corpuscular Volume 87.3 fL (81.0-99.0); Mean Platelet Volume 8.3 fL (7.4-10.4); Nucleated Red Blood Cells % 0 %; Platelet Count 432 10^3/uL (130-400); Red Blood Cell Count 4.64 10^6/uL (4.20-5.40); Red Cell Dist. Width 12.1 % (11.5-14.5); White Blood Cell Count 14.4 10^3/uL (4.8-10.8)
[2024-09-28 11:18] LABS: HCG, Serum Qualitative Screen Negative
[2024-09-28 11:25] LABS: ALT (SGPT) 16 U/L (0-35); AST (SGOT) 22 U/L (14-36); Albumin 5.2 g/dl (3.5-5.0); Alkaline Phosphatase 51 U/L (38-126); Blood Urea Nitrogen 17 mg/dl (7-17); Calcium 10.6 mg/dl (8.4-10.2); Carbon Dioxide 23 mmol/L (22-30); Chloride 106 mmol/L (98-107); Glucose 181 mg/dl (70-99); Potassium 4.8 mmol/L (3.5-5.1); Sodium 140 mmol/L (135-145); Total Bilirubin 0.6 mg/dl (0.2-1.3); eGFR > 60.00
[2024-09-28] MEDS: TORADOL 30 MG IV (11:59)
[2024-09-28] MEDS: BENADRYL 25 MG IV ×2 (11:59→12:57)
[2024-09-28] MEDS: COMPAZINE 10 MG IV (11:59)
[2024-09-28] MEDS: NSS 1000 IV (12:00)
[2024-09-28 12:07] VITALS: BP 131/69
[2024-09-28] MEDS: ATIVAN 0.5 MG IV (12:56)
--- NOTE | 2024-09-28 13:07 | ED.GENMED ---
History of Present Illness
General
Chief Complaint: Abdominal Symptoms
Source: patient
Time Seen by Provider: 09/28/24 11:46
History of Present Illness
History of Present Illness:
29-year-old female with past medical history of cyclical vomiting, endometriosis, anxiety and depression presenting to the emergency department for exacerbation of abdominal symptoms that she has had multiple times in the past requiring ER
visitation stating she has had the generalized abdominal pain, nausea, vomiting and diarrhea since earlier this morning believing her symptoms are likely related to binge eating strawberry ice cream yesterday noting that she has a red dye allergy
and believes this to have caused her symptoms. Patient unable to tolerate p.o. at home. Denies any fevers, chills, rigors. No known sick contacts, recent travel or recent antibiotics. Has been to this emergency department multiple times for
similar and states that today symptoms are reminiscent of her usual chronic symptoms. She has been seen by GI for this and has had a colonoscopy and endoscopy without any abnormality seen and has had CT imaging done in the past without any
abnormalities as well.
Past History
Past History
ED Past Medical History: Asthma, GERD, Psychiatric (Anxiety, depression) and Other (Intermittent vomiting episodes, Pneumothorax, IBS, Ovarian cyst, Dysmenorrhea, endometriosis)
ED Past Surgical History: Other (Breast reduction, surgery for scarring from endometriosis)
Patient has exhibited threatening behavior?: No
PSI?: No
Social History
Tobacco: Non-smoker
Alcohol: None
Drug: Marijuana
Personal: Single
Living: with family
Employment: Student
Family History
Family History: Other
Review of Systems
Review of Systems
All Other Systems: ROS reviewed and negative except as documented in HPI and ROS
Phy Exam
Physical Exam
Physical Exam:
GENERAL: Alert , in no apparent distress, retching and appears uncomfortable
EYE: clear conjunctiva b/l
HEAD: NCAT
ENT: o/p clr, mmm.
CARDIAC: Regular rate and rhythm .
LUNGS: Clear breath sounds bilaterally, no acute respiratory distress, no wheezes/rales/rhonchi
ABDOMEN: Soft, without focal tenderness, no r/g, no cvat
NEUROLOGICAL: Alert and oriented
SKIN: Warm and dry, skin intact.
MUSCULOSKELETAL: No edema, well perfused.
PSYCH: Normal and appropriate interaction.
Scores
Heart Failure Risk
Heart Failure Risk Score: Not Applicable
Heart Score for Chest Pain Patients
STEMI patient?: Not applicable
Withdrawal Assessment of Alcohol
Withdrawal Assessment Completed?: Not applicable
Course
Orders/Labs/Results
Orders:
Orders
09/28/24 10:44
EKG [Electrocardiogram (*1)] Urgent
Reason for Study: Abdominal Pain
EKG- Treatment ONCE
Test Result ONCE
09/28/24 10:56
CBC/With Diff [Complete Blood Count/With Diff] Urgent
Comprehensive Metabolic Panel Urgent
HCG, Serum Qualitative Screen Urgent
09/28/24 11:46
0.9% Sodium Chloride 1000 ml [Nss] 1,000 ml IV BOLUS
Diphenhydramine [Benadryl] 25 mg IV NOW STA
Ketorolac [Toradol] 30 mg IV NOW STA
Prochlorperazine [Compazine] 10 mg IV NOW STA
09/28/24 12:48
Diphenhydramine [Benadryl] 25 mg IV NOW STA
Lorazepam [Ativan] 0.5 mg IV NOW STA
Abnormal Lab Results
09/28/24
10:56
WBC 14.4 H 10^3/uL
(4.8-10.8)
Plt Count 432 H 10^3/uL
(130-400)
Abs Immat Gran (auto) 0.1 H 10^3/uL
(0-0.05)
Absolute Neuts (auto) 11.2 H 10^3/uL
(1.4-6.5)
Absolute Monos (auto) 0.7 H 10^3/uL
(0.1-0.6)
Immature Gran % 0.8 H %
(0-0.5)
Neutrophils % 77.8 H %
(42.2-75.2)
Lymphocytes % 15.3 L %
(20.5-51.1)
Glucose 181 H mg/dl
(70-99)
Calcium 10.6 H mg/dl
(8.4-10.2)
Albumin 5.2 H g/dl
(3.5-5.0)
09/28/24 10:56
09/28/24 10:56
Vital Signs
Initial and Last Documented VS:
Initial Vital Signs
Temp Pulse Resp BP Pulse Ox
97.4 F 64 20 117/84 100
09/28/24 10:40 09/28/24 10:40 09/28/24 10:40 09/28/24 10:40 09/28/24 10:40
Last Documented Vital Signs
Temp Pulse Resp BP Pulse Ox
97.4 F 91 20 131/69 100
09/28/24 10:40 09/28/24 12:00 09/28/24 10:40 09/28/24 12:07 09/28/24 12:07
MDM/Problems Addressed
Differential Diagnosis Includes:
Gastroparesis, cyclic vomiting, cannabinoid hyperemesis, dehydration, less concern for acute surgical abdomen
MDM/Problems Addressed:
29-year-old female presenting to the emergency department for an acute onset of nausea vomiting and diarrhea accompanied with generalized abdominal pain that is reminiscent of her usual pain/symptomatology that she has been seen for here in this
emergency department in the past. Patient with no explained etiologies for her symptoms but patient does believe this to be related to binge eating ice cream last night. She denies any fevers. No symptoms different than her typical. Records
reviewed and patient has received multiple rounds of IV medication for relief in the past. She has had CTs done before without any significant abnormalities. Based off last visit we will try Compazine, Benadryl and Toradol for symptomatic relief.
Considered CT of the abdomen and pelvis however patient has already had this done in the past without any abnormalities seen. If not having any improvement in her symptoms and needs to stay in the hospital we will consider CT then as this may
determine disposition planning.
Chronic conditions affecting care: Other (Chronic GI illness)
*Pulse Oximetry
Patient hypoxic: no
*Critical Care Note
Total Time (30-74mins, 75-104mins- exclusive of procedures): Not Applicable
Data Reviewed
Review of Other/Old Records Reveals: Labs, Records and Radiology Studies
Source: patient
Patient Management
Escalation/DeEscalation of care consider admission/obs:
Patient still with some pain and nausea. Benadryl and Ativan ordered. Patient asking for Dilaudid as this is the only thing that helps her. Explained our policy here at the hospital for chronic pain and patient expressed understanding
Nursing staff asked if patient able to trial p.o. liquids. Will attempt this p.o. trial and reassess following and if successful patient will be stable for discharge home. Will consider medications for discharge home and advise close outpatient
follow-up.
When I went to reassess the patient we were unable to find the patient within the emergency department any longer. We searched the ER as well as the bathrooms within the waiting room and patient was not able to be found. Upon security footage we
did see the patient leaving through the front entrance of the emergency department. I contacted the patient via cell phone as well as her emergency contacts which were her listed mother and father and left voicemails on all 3 of their cell phones
for them to contact us back as patient did have an IV in place and we were unable to verify if the patient did in fact have her IV removed. Patient is a resident of [facility] so will contact their police department to do a wellness check
to ensure patient's IV is no longer in place.
ED Attending Note
-
Portions of this chart may have been created with voice recognition software.� Occasional wrong word or��sound alike� substitutions may have occurred due to the inherent limitations of voice recognition software.
Discharge Plan
Departure
Patient Disposition: Elopement
Date of Disposition: 09/28/24
Time of Disposition: 15:02
Discharge Problem:
Abdominal pain, Nausea and vomiting, Diarrhea
Prescriptions:
No Action
lamotrigine 25 mg tablet
100 mg PO DAILY
famotidine 20 mg tablet
20 mg PO HS
hydroxyzine HCl 25 mg tablet
25 mg PO TID PRN (Reason: nausea/sleep/dermatitis)
medroxyprogesterone 150 mg/mL syringe
150 mg IM .Q3MOS
bupropion HCl 150 mg tablet extended release 24 hr
150 mg PO DAILY
tamsulosin [Flomax] 0.4 mg capsule
0.4 mg PO DAILY Qty: 7 0RF
diclofenac sodium 75 mg tablet,delayed release (DR/EC)
75 mg PO BID Qty: 10 0RF
Referrals:
Erika aCrr PA-C [Family Provider] -
Interventions
Interventions:
*Risk Screen - Suicide Last Done: 09/28/24 10:40
*General Assessment Last Done: 09/28/24 10:40
*Neglect/Abuse Screening Last Done: 09/28/24 10:40
*ED COVID-19 Vaccine History Last Done: 09/28/24 12:06
*Nursing Disposition Last Done: 09/28/24 15:05
SI-Jugxkb-Nqrdomzqtn Assessment Last Done: 09/28/24 12:06
Discharge Date and Time
Discharge Date/Time: 09/28/24 15:06
Print Language: ITALIAN
== END 2024-09-28 15:06 | disposition left against medical advice (07) ==
LOC: EMR 10:26
PROVIDERS: EMERGENCY PHYSICIAN Emergency Medicine; FAMILY PHYSICIAN Physician Assistant Medical
DX: R10.84 Generalized abdominal pain (principal); R11.2 Nausea with vomiting, unspecified; R19.7 Diarrhea, unspecified; F41.8 Other specified anxiety disorders; J45.909 Unspecified asthma, uncomplicated; K21.9 Gastro-esophageal reflux disease without esophagitis; K58.9 Irritable bowel syndrome, unspecified
CPT/HCPCS: 99283; 96374; 96375; 96376; 80053; 84703; 85025; 93005

== ENCOUNTER 2024-11-27 18:59 | Emergency (ER) | payer SELFPAY ==
[2024-11-27 19:22] VITALS: BP 117/89
[2024-11-27 19:53] LABS: % Basophils 0.5 % (0-2); % Eosinophils 2.4 % (0-6); % Immature Granulocytes 0.6 % (0-0.5); % Lymphocytes 28.5 % (20.5-51.1); % Monocytes 6.1 % (1.7-9.3); % Neutrophils 61.9 % (42.2-75.2); Absolute Basophils 0.1 10^3/uL (0-0.2); Absolute Eosinophils 0.3 10^3/uL (0-0.7); Absolute Immature Granulocytes 0.1 10^3/uL (0-0.05); Absolute Lymphocytes 3.5 10^3/uL (1.2-3.4); Absolute Monocytes 0.8 10^3/uL (0.1-0.6); Absolute Neutrophils 7.7 10^3/uL (1.4-6.5); Hematocrit 41.3 % (37.0-47.0); Hemoglobin 14.3 g/dL (12.0-16.0); Mean Corp Hgb Conc. 34.6 g/dL (33.0-37.0); Mean Corpuscular Hgb 30.2 pg (27.0-31.0); Mean Corpuscular Volume 87.1 fL (81.0-99.0); Mean Platelet Volume 8.5 fL (7.4-10.4); Nucleated Red Blood Cells % 0 %; Platelet Count 488 10^3/uL (130-400); Red Blood Cell Count 4.74 10^6/uL (4.20-5.40); Red Cell Dist. Width 11.9 % (11.5-14.5); White Blood Cell Count 12.4 10^3/uL (4.8-10.8)
[2024-11-27 19:55] LABS: Urine Albumin 2+ (Neg - Trace); Urine Bilirubin Negative (Negative); Urine Character Slightly Cloudy (Clear); Urine Color Yellow; Urine Glucose Negative (Negative); Urine Ketone Negative (Negative); Urine Leukocyte 1+ (Negative); Urine Nitrite Negative (Negative); Urine Occult Blood 4+ (Negative); Urine Urobilinogen 1+ (Neg - 1+)
[2024-11-27 20:02] LABS: Urine Squamous Cell 16-20 /LPF (Few)
[2024-11-27 20:03] LABS: Urine Bacteria Many (Negative)
[2024-11-27 20:04] LABS: HCG, Serum Qualitative Screen Negative
[2024-11-27 20:09] LABS: ALT (SGPT) 16 U/L (0-35); AST (SGOT) 24 U/L (14-36); Albumin 5.3 g/dl (3.5-5.0); Alkaline Phosphatase 67 U/L (38-126); Blood Urea Nitrogen 14 mg/dl (7-17); Calcium 10.9 mg/dl (8.4-10.2); Carbon Dioxide 20 mmol/L (22-30); Chloride 103 mmol/L (98-107); Glucose 134 mg/dl (70-99); Potassium 4.2 mmol/L (3.5-5.1); Sodium 138 mmol/L (135-145); Total Bilirubin 0.8 mg/dl (0.2-1.3); Total Protein 8.1 g/dl (6.3-8.2); eGFR > 60.00
[2024-11-27 20:10] LABS: Lipase 110 U/L (23-300)
[2024-11-27 20:41] VITALS: BMI 25.2
[2024-11-27 20:42] VITALS: BP 110/76
--- NOTE | 2024-11-27 20:48 | ED.GENMED ---
History of Present Illness
General
Chief Complaint: Abdominal Pain
Time Seen by Provider: 11/27/24 20:38
History of Present Illness
History of Present Illness:
Patient is a 29-year-old woman with history of constipation, gastroparesis presenting to the emergency department with abdominal pain. Per chart review patient had multiple episodes for the same. She states that she was recently admitted at [facility]. Per the paperwork she arrived with she was admitted for enteritis as well as gastritis where she had an EGD completed that was unremarkable. She states that she was discharged this morning and developed pain after eating. It is on the
left side. It comes and goes. She has been having diarrhea some nausea. No vomiting. No fevers or chills. No URI symptoms. No urinary symptoms.
Past History
Past History
ED Past Medical History: Asthma, GERD, Psychiatric (Anxiety, depression) and Other (Intermittent vomiting episodes, Pneumothorax, IBS, Ovarian cyst, Dysmenorrhea, endometriosis)
ED Past Surgical History: Other (Breast reduction, surgery for scarring from endometriosis)
Patient has exhibited threatening behavior?: No
PSI?: No
Social History
Tobacco: Non-smoker
Alcohol: None
Drug: Marijuana
Personal: Single
Living: with family
Employment: Student
Family History
Family History: Other
Phy Exam
Physical Exam
Physical Exam:
GENERAL: in no acute distress
HEENT: normocephalic, extraocular movements intact, moist oral mucosa
NECK: normal inspection
RESPIRATORY: no respiratory distress, clear to auscultation bilaterally
CARDIOVASCULAR: regular rate and rhythm
ABDOMEN/: soft, non-distended, non-tender to palpation, no rebound or guarding
EXTREMITIES: non-tender, no edema/swelling
NEUROLOGIC: awake and alert, moves all extremities
SKIN: warm
Course
Orders/Labs/Results
Orders:
Orders
11/27/24 19:28
Test Result ONCE
11/27/24 19:35
Complete Blood Count/With Diff Urgent
Comprehensive Metabolic Panel Urgent
HCG, Serum Qualitative Screen Urgent
Lipase Urgent
Urinalysis Reflex To Culture Urgent
Date Specimen was Collected: 11/27/24
Time Specimen was Collected: :28
Urine Microscopic Reflex Cult Urgent
Urine Culture Urgent
BRENT Source: U
Specimen Description:
Date Specimen was Collected: 11/27/24
Time Specimen was Collected: :
11/27/24 20:45
Ketorolac [Toradol] 15 mg IM NOW STA
Metoclopramide [Reglan] 10 mg IM NOW STA
11/27/24 21:50
Acetaminophen [Tylenol] 1,000 mg PO NOW STA
Dicyclomine [Bentyl] 20 mg PO NOW STA
Abnormal Lab Results
11/27/24
19:35
WBC 12.4 H 10^3/uL
(4.8-10.8)
Plt Count 488 H 10^3/uL
(130-400)
Abs Immat Gran (auto) 0.1 H 10^3/uL
(0-0.05)
Absolute Neuts (auto) 7.7 H 10^3/uL
(1.4-6.5)
Absolute Lymphs (auto) 3.5 H 10^3/uL
(1.2-3.4)
Absolute Monos (auto) 0.8 H 10^3/uL
(0.1-0.6)
Immature Gran % 0.6 H %
(0-0.5)
Carbon Dioxide 20 L mmol/L
(22-30)
Glucose 134 H mg/dl
(70-99)
Calcium 10.9 H mg/dl
(8.4-10.2)
Albumin 5.3 H g/dl
(3.5-5.0)
Ur Occult Blood Reflex 4+ A
(Negative)
Leukocyte Esterase Rfl 1+ A
(Negative)
Urine RBC 11-15 A /HPF
(0-2)
Urine Bacteria (Reflex) Many A
(Negative)
Urine Albumin (Reflex) 2+ A
(Neg - Trace)
11/27/24 19:35
11/27/24 19:35
Vital Signs
Initial and Last Documented VS:
Initial Vital Signs
Temp Pulse Resp BP Pulse Ox
98.3 F 79 18 117/89 98
11/27/24 19:22 11/27/24 19:22 11/27/24 19:22 11/27/24 19:22 11/27/24 19:22
Last Documented Vital Signs
Temp Pulse Resp BP Pulse Ox
98.3 F 79 18 110/76 96
11/27/24 19:22 11/27/24 19:22 11/27/24 19:22 11/27/24 20:42 11/27/24 20:42
MDM/Problems Addressed
Differential Diagnosis Includes:
Patient is a 29-year-old woman who presents to our emergency department quite frequently presenting to the emergency department with abdominal pain. Vitals unremarkable and on exam patient does appear relatively without any significant abdominal
tenderness to palpation. Differential is broad gastroparesis versus ongoing enteritis versus cannabinoid hyperemesis or cyclic vomiting. Patient exam not consistent with acute surgical abdomen. Per chart review it appears that patient has eloped
a few times. After discussion with patient we will start with Toradol and Benadryl. Will not give opioids. Consider obtaining CT scan however patient recently had a CT scan and abdomen is benign so we will hold off.
*Critical Care Note
Total Time (30-74mins, 75-104mins- exclusive of procedures): Not Applicable
Update Note
Update Note:
On reevaluation patient states that the pain is still there. She is complaining of the pain secondary peristalsis. Will try Bentyl and Tylenol.
On reevaluation the pain is a 2 out of 10. Will discharge at this time. Patient advised on clear liquid diet and advancing slowly.
ED Attending Note
-
Portions of this chart may have been created with voice recognition software.� Occasional wrong word or��sound alike� substitutions may have occurred due to the inherent limitations of voice recognition software.
Discharge Plan
Departure
Patient Disposition: Home (Routine Discharge)
Date of Disposition: 11/27/24
Time of Disposition: 22:50
Patient with high blood pressure during this ER visit?: No
Discharge Problem:
Abdominal pain
Instructions: Abdominal Pain
Prescriptions:
New
dicyclomine 20 mg tablet
20 mg PO QID PRN (Reason: abdominal pain) Qty: 30 0RF
No Action
lamotrigine 25 mg tablet
100 mg PO DAILY
famotidine 20 mg tablet
20 mg PO HS
hydroxyzine HCl 25 mg tablet
25 mg PO TID PRN (Reason: nausea/sleep/dermatitis)
medroxyprogesterone 150 mg/mL syringe
150 mg IM .Q3MOS
bupropion HCl 150 mg tablet extended release 24 hr
150 mg PO DAILY
tamsulosin [Flomax] 0.4 mg capsule
0.4 mg PO DAILY Qty: 7 0RF
diclofenac sodium 75 mg tablet,delayed release (DR/EC)
75 mg PO BID Qty: 10 0RF
Referrals:
Erika Carr PA-C [Family Provider] -
Activity Restrictions/Additional Instructions:
You have been evaluated in the Emergency Department today for abdominal pain. Your evaluation did not show evidence of medical conditions requiring emergent intervention at this time.
Please schedule an appointment with your primary care physician.
Return to the Emergency Department if you experience worsening or uncontrolled pain, fevers 100.4�F or greater, recurrent vomiting, inability to tolerate food or fluids by mouth, bloody stools or vomit, black or tarry stools, or any other concerning
symptoms.
Thank you for choosing us for your care.
Interventions
Interventions:
*Risk Screen - Suicide Last Done: 11/27/24 19:22
*General Assessment Last Done: 11/27/24 19:22
*Neglect/Abuse Screening Last Done: 11/27/24 19:22
ED- Fall Risk Assessment Last Done: 11/27/24 20:45
*ED COVID-19 Vaccine History Last Done: 11/27/24 20:45
NG-Kfqaay-Glhrhiifhq Assessment Last Done: 11/27/24 20:45
Discharge Date and Time
Print Language: AZERI
[2024-11-27] MEDS: REGLAN 10 MG IM (20:52)
[2024-11-27] MEDS: TORADOL 15 MG IM (20:52)
[2024-11-27] MEDS: TYLENOL 1000 MG PO (21:53)
[2024-11-27] MEDS: BENTYL 20 MG PO (21:58)
== END 2024-11-27 23:12 | disposition home or self-care (01) ==
LOC: EMR 18:59
PROVIDERS: Student in an Organized Health Care Education/Training Program; EMERGENCY PHYSICIAN Student in an Organized Health Care Education/Training Program; FAMILY PHYSICIAN Physician Assistant Medical
DX: R10.9 Unspecified abdominal pain (principal); K59.00 Constipation, unspecified; K31.84 Gastroparesis
CPT/HCPCS: 99284; 96372 ×2; 80053; 81003; 81015; 83690; 84703; 85025; 87086